=== PATIENT | male | born 1970 | race African-American/Black ===

== ENCOUNTER 2020-03-22 07:07 | Day surgery (SDC) | payer OTHER ==
[~2020-03-22] VITALS: Ht 175.3 cm; Wt 109.8 kg
[2020-03-22 07:51] VITALS: BP 126/78
[2020-03-22 12:23] VITALS: BP 137/81
== END 2020-03-22 12:25 | disposition home or self-care (01) ==
LOC: GI 07:07
PROVIDERS: ATTEND Internal Medicine Gastroenterology
DX: D64.9 Anemia, unspecified (principal); K57.30 Diverticulosis of large intestine without perforation or abscess without bleeding; K64.8 Other hemorrhoids; N40.0 Benign prostatic hyperplasia without lower urinary tract symptoms; E11.9 Type 2 diabetes mellitus without complications; I10 Essential (primary) hypertension; E78.5 Hyperlipidemia, unspecified; F20.9 Schizophrenia, unspecified; E66.9 Obesity, unspecified; Z68.35 Body mass index [BMI] 35.0-35.9, adult; Z79.899 Other long term (current) drug therapy
CPT/HCPCS: 45378; J1200; J1610; J2250; J2310; J3010; J3490; J7042